=== PATIENT | female | born 1970 | race Caucasian/White ===

== ENCOUNTER 2023-09-11 21:00 | Emergency (ER) | payer OTHER, SELFPAY ==
[2023-09-11 21:01] VITALS: BP 138/94; BMI 24.2
--- NOTE | 2023-09-11 21:37 | ED.SKININJ ---
HPI-Injury
<MAYELA Ayon - Last Filed: 09/12/23 00:00>
General
Chief Complaint: Skin Surface Trauma
Source: patient
Exam Limitations: none
Time Seen by Provider: 09/11/23 21:29
Nursing documentation reviewed up to this point in time: agreed with
Travel History
Have you had any contact with someone who has COVID-19?: No
Do you have any symptoms of coronavirus? Fever > 100 degrees, chills, cough, shortness of breath, sore throat, loss of taste or smell, muscle aches, or headache?: No
History of Present Illness-Injury
Initial Injury comments:
This is a 52 year old female who presents to the ER after she accidentally sliced the base of her left 1st and 2nd digits x15 minutes prior to arrival. She reports she was cutting out an avocado pit when the kitchen knife slipped and cut her in
between her left index and middle finger. She denies any known allergies. She is UTD on immunizations including Tdap. She denies fevers, chills, nausea, vomiting, lightheadedness, or dizziness.
Review of Systems
<MAYELA Ayon - Last Filed: 09/12/23 00:00>
Review of Systems
Allergies reviewed?: Yes
All Other Systems: Not applicable
Constitutional: Reports no symptoms
EENT: Reports no symptoms
Respiratory: Reports no symptoms
Cardiac: Reports no symptoms
ABD/GI: Reports no symptoms
: Reports no symptoms
Musculoskeletal: Reports no symptoms
Skin: Reports other (Laceration on left 1st digit )
Neurological: Reports no symptoms
Endocrine: Reports no symptoms
Hematologic/Lymphatic: Reports no symptoms
Psychiatric: Reports no symptoms
Phy Exam
<MAYELA Ayon - Last Filed: 09/12/23 00:00>
General Physical Exam
General Presentation: well appearing and no apparent distress
General Skin: warm and dry
General Habitus: normal
General Mental: alert
General Hydration: appears well hydrated
ENT Exam
ENT Exam: EOMI, pharynx normal, neck supple and normocephalic
Eye Exam
Eye Exam: PERRL, cornea clear and conjunctiva normal
Cardiovascular Exam
Cardiovascular Exam: regular rate/rhythm, no edema, no murmur and normal peripheral pulses
Pulmonary Exam
Pulmonary Exam: lungs clear, no respiratory distress, no rales, no crackles, no rhonchi, no stridor, no wheezing and no cough
Gastrointestinal Exam
Gastrointestinal Exam: normal bowel sounds, non tender, soft, no organomegaly, no pulsatile mass and non distended
Neurological Exam
Neurological Exam: alert, oriented x3, no motor deficits and speech normal
Musculoskeletal Exam
Musculoskeletal Exam: full ROM and no edema
Skin Exam
Skin Exam: normal color, warm/dry, no rash, no petechia and laceration (1 inch laceration at the web base of left 1st digit )
Psychiatric Exam
Psychiatric Exam: normal mood/affect
Course
<MAYELA Ayon - Last Filed: 09/12/23 00:00>
Vital Signs
Initial and Last Documented VS:
Initial Vital Signs
Temp Pulse Resp BP Pulse Ox
98.6 F 92 16 138/94 99
09/11/23 21:01 09/11/23 21:01 09/11/23 21:01 09/11/23 21:01 09/11/23 21:01
Last Documented Vital Signs
Temp Pulse Resp BP Pulse Ox
98.6 F 81 14 127/81 98
09/11/23 21:01 09/11/23 23:22 09/11/23 23:22 09/11/23 23:22 09/11/23 23:22
<Laureano Davis DO - Last Filed: 09/11/23 23:11>
Vital Signs
Initial and Last Documented VS:
Initial Vital Signs
Temp Pulse Resp BP Pulse Ox
98.6 F 92 16 138/94 99
09/11/23 21:01 09/11/23 21:01 09/11/23 21:01 09/11/23 21:01 09/11/23 21:01
Last Documented Vital Signs
Temp Pulse Resp BP Pulse Ox
98.6 F 81 14 127/81 98
09/11/23 21:01 09/11/23 23:22 09/11/23 23:22 09/11/23 23:22 09/11/23 23:22
Procedures
<MAYELA Ayon - Last Filed: 09/12/23 00:00>
Laceration Closure
Left First Finger(s):
Status of Wound: clean
Description of Wound Edges: sharp
Preparation: cleaned with saline
Anesthesia: 1% Lidocaine
Type of Closure: single layer closure
Skin Closure Material: 5-0 nylon
Number of sutures: 3
Left Second Finger(s):
Status of Wound: clean
Description of Wound Edges: sharp
Preparation: cleaned with saline
Anesthesia: 1% Lidocaine
Type of Closure: single layer closure
Skin Closure Material: 5-0 nylon
Number of sutures: 2
<MAYELA Ayon - Last Filed: 09/12/23 00:00>
MDM/Problems Addressed
Differential Diagnosis Includes:
Laceration vs abrasion
This patient has a laceration considered patient history and physical exam including involvement of a sharp knife and clean cut on left finger.
<MAYELA Ayon - Last Filed: 09/12/23 00:00>
*Critical Care Note
Total Time (30-74mins, 75-104mins- exclusive of procedures): Not Applicable
ED Attending Note
<MAYELA Ayon - Last Filed: 09/12/23 00:00>
-
Portions of this chart may have been created with voice recognition software.� Occasional wrong word or��sound alike� substitutions may have occurred due to the inherent limitations of voice recognition software.
<Laureano Davis DO - Last Filed: 09/11/23 23:11>
ED Attending Note
Patient seen and examined by attending physician: Yes
I performed the substantive portion of visit, reviewed & personally made and approve the management plan that is documented in note by myself or MARLENE.: Yes
ED Attending Note:
52-year-old female presents with lacerations to her index and middle fingers. She was using a knife and accidentally cut them. Last tetanus is up-to-date. Denies any other injury. Patient was seen in conjunction with the PA student. I have
reviewed and agree with the history and treatment plan presented. On my independent physical exam, patient is awake, alert, and oriented x3 no acute distress. Laceration to the medial side of the index finger was 2-1/2 cm. Laceration to the
lateral side of the middle finger is 2 cm.
Wound was thoroughly cleaned and anesthetized with 1% lidocaine without epinephrine.
Using 5-0 nylon and simple interrupted sutures, 3 sutures were placed on the index finger and 2 sutures were placed on the middle finger.
This procedure was performed in its entirety by the PA student under my direct and constant supervision.
Discharge Plan
Departure
Patient Disposition: Home (Routine Discharge)
Date of Disposition: 09/11/23
Time of Disposition: 23:10
Patient with high blood pressure during this ER visit?: Yes
Condition: Good
Discharge Problem:
Finger laceration
Instructions: Wound Care (DC), Laceration Repair With Stitches (DC)
Referrals:
[facility] [Outside]
Activity Restrictions/Additional Instructions:
It was a pleasure meeting you and taking part in your care. We hope for your continued healing and wellness.
Please read discharge instructions in their entirety. However, they are for general education and may not describe your exact diagnosis at discharge. Information on your ER visit and medical conditions were discussed with you along with appropriate
follow up information...
If indicated, please take your medications as instructed and indicated on discharge paperwork.
Please schedule a follow up appointment as directed. Call to schedule an appointment
Please return to the emergency department with ANY change in, persisting, or worsening of symptoms. If any of your symptoms do not improve, or persist, or become more severe within 6-12 hours, please return to the emergency department for further
care.
Please return to the emergency department if you develop a headache, neck pain/stiffness, fever greater than 100.4F, chest pain, shortness of breath, persistent nausea, vomiting, slurred speech, difficulty walking, numbness/tingling, weakness, signs
of infection or any other symptoms that are worrisome to you.
If you have any questions or concerns please do not hesitate to call the Hospital at or E-mail me directly at [email or web address]
Interventions
Interventions:
*Risk Screen - Suicide Last Done: 09/11/23 23:23
*General Assessment Last Done: 09/11/23 23:23
*Neglect/Abuse Screening Last Done: 09/11/23 23:23
ED- Fall Risk Assessment Last Done: 09/11/23 23:23
*ED COVID-19 Vaccine History Last Done: 09/11/23 21:01
*Nursing Disposition Last Done: 09/11/23 23:23
ED-Skin Assessment Last Done: 09/11/23 23:21
Discharge Date and Time
Discharge Date/Time: 09/11/23 23:24
Print Language: [id number]
[2023-09-11 23:22] VITALS: BP 127/81
== END 2023-09-11 23:24 | disposition home or self-care (01) ==
LOC: EMR 21:00
PROVIDERS: EMERGENCY PHYSICIAN Student in an Organized Health Care Education/Training Program
DX: S61.211A Laceration without foreign body of left index finger without damage to nail, initial encounter (principal); S61.213A Laceration without foreign body of left middle finger without damage to nail, initial encounter; W26.0XXA Contact with knife, initial encounter; Y93.G1 Activity, food preparation and clean up; R03.0 Elevated blood-pressure reading, without diagnosis of hypertension
CPT/HCPCS: 99282; 12002

== ENCOUNTER → 2024-01-20 06:17 | Day surgery (SDC) | payer OTHER, SELFPAY | LOC: GI 06:17 | PROVIDERS: ATTENDING PHYSICIAN Internal Medicine | DX: Z12.11 Encounter for screening for malignant neoplasm of colon (principal); K57.30 Diverticulosis of large intestine without perforation or abscess without bleeding | CPT/HCPCS: G0121 ==

== ENCOUNTER → 2024-02-11 16:11 | Outpatient (REF) | payer OTHER, SELFPAY | LOC: HWWDC 16:11 | PROVIDERS: ATTENDING PHYSICIAN Obstetrics & Gynecology Gynecology; FAMILY PHYSICIAN Student in an Organized Health Care Education/Training Program | DX: Z12.31 Encounter for screening mammogram for malignant neoplasm of breast (principal) | CPT/HCPCS: 77063; 77067 ==